=== PATIENT | male | born 1960 | race Caucasian/White ===

== ENCOUNTER 2017-10-12 07:47 | Emergency (ER) | payer OTHER ==
[2017-10-12] MEDS ORDERED: IBUPROFEN 800 MG TABLET PO ONE (08:14)
[2017-10-12] MEDS ORDERED: ONDANSETRON 4 MG TAB.RAPDIS PO ONE (08:14)
--- NOTE | 2017-10-12 09:37 | ER Document Report ---
ED Flu Like - General Chief Complaint: Flu Symptoms Stated Complaint: FEVER Time Seen by Provider: 10/12/17 08:13 Mode of Arrival: Ambulatory Information source: Patient Notes: Patient is a 57-year-old male who presents to the ER today for 1 day of body aches, nausea, diarrhea, without vomiting. Patient denies fever or chills. He denies any cough, runny nose, sore throat or other upper respiratory symptoms. TRAVEL OUTSIDE OF THE [place] IN LAST 30 DAYS: No - Related Data Allergies/Adverse Reactions: No Known Allergies Allergy (Verified 10/12/17 07:48) Past Medical History - General Information source: Patient - Social History Smoking Status: Never Smoker Chew tobacco use (# tins/day): No Drug Abuse: None Family History: Reviewed & Not Pertinent Patient has suicidal ideation: No Patient has homicidal ideation: No Renal/ Medical History: Denies: Hx Peritoneal Dialysis Review of Systems - Review of Systems Constitutional: See HPI, Malaise EENT: No symptoms reported Cardiovascular: No symptoms reported Respiratory: No symptoms reported Gastrointestinal: See HPI Genitourinary: No symptoms reported Male Genitourinary: No symptoms reported Musculoskeletal: No symptoms reported Skin: No symptoms reported Hematologic/Lymphatic: No symptoms reported Neurological/Psychological: No symptoms reported Physical Exam - Vital signs Vitals: Pulse Resp BP Pulse Ox 106 H 16 115/74 97 10/12/17 07:53 10/12/17 07:53 10/12/17 07:53 10/12/17 07:53 - Notes Notes: PHYSICAL EXAMINATION: GENERAL: Mildly ill-appearing, but in no acute distress. HEAD: Atraumatic, normocephalic. EYES: Pupils equal round and reactive to light, extraocular movements intact, sclera anicteric, conjunctiva are normal. ENT: ear canals without erythema or foreign body, TMs pearly clemente with good bony landmarks, nares patent, oropharynx clear without exudates. Moist mucous membranes. NECK: Normal range of motion, supple without lymphadenopathy LUNGS: CTAB and equal. No wheezes rales or rhonchi. HEART: Regular rate and rhythm without murmurs ABDOMEN: Soft, no tenderness. No guarding, no rebound BACK: no vertebral tenderness, normal ROM GI/: no CVA tenderness EXTREMITIES: Normal range of motion, no pitting edema. No cyanosis. NEUROLOGICAL: Cranial nerves grossly intact. Normal sensory/motor exams. PSYCH: Normal mood, normal affect. SKIN: Warm, Dry, normal turgor, no rashes or lesions noted Course - Re-evaluation Re-evalutation: 10/12/17 17:24 influenza negative here today. Patient given nausea medication and ibuprofen, advised to drink plenty of fluids. - Vital Signs Vital signs: Temp Pulse Resp BP Pulse Ox 97.7 F 75 18 112/68 97 10/12/17 09:55 10/12/17 09:55 10/12/17 09:55 10/12/17 09:55 10/12/17 09:55 Discharge - Discharge Clinical Impression: Viral syndrome Diarrhea Qualifiers: Diarrhea type: unspecified type Qualified Code(s): R19.7 - Diarrhea, unspecified Condition: Stable Disposition: HOME, SELF-CARE Instructions: Diarrhea, Nonspecific ([facility]), Viral Syndrome ([facility]) Additional Instructions: Please drink plenty of fluids, Gatorade, water. Return immediately for any new or worsening symptoms. Follow up with primary care provider, call tomorrow to make followup appointment. Prescriptions: Ibuprofen [Motrin 800 mg Tablet] 800 mg PO Q8H PRN #30 tab PRN Reason: Ondansetron [Zofran Odt 4 mg Tablet] 1 - 2 tab PO Q4H PRN #15 tab.rapdis PRN Reason: For Nausea/Vomiting Forms: Return to Work
[2017-10-12 09:58] VITALS: BP 112/68
== END 2017-10-12 09:54 | disposition home or self-care (01) ==
LOC: ER 07:47
DX: B34.9 Viral infection, unspecified (principal); R19.7 Diarrhea, unspecified; R11.0 Nausea; R52 Pain, unspecified; R53.81 Other malaise
CPT/HCPCS: 99283; 87804; S0119

== ENCOUNTER 2017-12-26 15:37 | Emergency (ER) | payer OTHER ==
[2017-12-26] MEDS ORDERED: IPRATROPIUM/ALBUTEROL 0.5-2.5 MG/3 ML AMPUL NEB ONE ×3 (16:09→16:14)
[2017-12-26] MEDS ORDERED: PREDNISONE 20 MG TABLET PO ONE (16:14)
--- NOTE | 2017-12-26 16:17 | ER Document Report ---
ED General - General Chief Complaint: Cough, congestion, asthma Stated Complaint: COUGH, DIFFICULTY BREATHING, BODY ACHES Time Seen by Provider: 12/26/17 16:03 Mode of Arrival: Ambulatory Information source: Patient Notes: 57-year-old male history of asthma presents with complaints of cough 3-4 day duration with wheezing. Patient has been using nebulizer at home. He denies any fevers or chills denies any nausea vomiting or diarrhea. She notes that family member was recently diagnosed with bronchitis TRAVEL OUTSIDE OF THE [place] IN LAST 30 DAYS: No - HPI Onset: Other Onset/Duration: Persistent Quality of pain: Achy Severity: Mild Pain Level: 1 Associated symptoms: Productive cough, Shortness of breath Exacerbated by: Movement, Walking, Coughing Relieved by: Denies Similar symptoms previously: Yes Recently seen / treated by doctor: No - Related Data Allergies/Adverse Reactions: No Known Allergies Allergy (Verified 10/12/17 07:48) Past Medical History - Social History Smoking Status: Former Smoker Cigarette use (# per day): No Chew tobacco use (# tins/day): No Smoking Education Provided: No Frequency of alcohol use: None Drug Abuse: None Family History: Reviewed & Not Pertinent Patient has suicidal ideation: No Patient has homicidal ideation: No - Past Medical History Cardiac Medical History: Reports: Hx Hypertension Pulmonary Medical History: Reports: Hx Asthma Renal/ Medical History: Denies: Hx Peritoneal Dialysis Past Surgical History: Reports: Hx Oral Surgery - [place] Review of Systems - Review of Systems Notes: REVIEW OF SYSTEMS: CONSTITUTIONAL : Denies fever, chills, or sweats. Denies recent illness. EENT: Denies eye, ear, throat, or mouth pain or symptoms. Denies nasal or sinus congestion or discharge. Denies throat, tongue, or mouth swelling or difficulty swallowing. CARDIOVASCULAR: Denies chest pain. Denies palpitations or racing or irregular heart beat. Denies ankle edema. RESPIRATORY: Admits to cough shortness of breath GASTROINTESTINAL: Denies abdominal pain or distention. Denies nausea, vomiting , or diarrhea. Denies blood in vomitus, stools, or per rectum. Denies black, tarry stools. Denies constipation. GENITOURINARY: Denies difficulty urinating, painful urination, burning, frequency, blood in urine, or discharge. MUSCULOSKELETAL: Denies back or neck pain or stiffness. Denies joint pain or swelling. SKIN: Denies rash, lesions or sores. HEMATOLOGIC : Denies easy bruising or bleeding. LYMPHATIC: Denies swollen, enlarged glands. NEUROLOGICAL: Denies confusion or altered mental status. Denies passing out or loss of consciousness. Denies dizziness or lightheadedness. Denies headache. Denies weakness or paralysis or loss of use of either side. Denies problems with gait or speech. Denies sensory loss, numbness, or tingling. Denies seizures. PSYCHIATRIC: Denies anxiety or stress. Denies depression, suicidal ideation, or homicidal ideation. ALL OTHER SYSTEMS REVIEWED AND NEGATIVE. Dictation was performed using [employer] voice recognition software PHYSICAL EXAMINATION: GENERAL: Well-appearing, well-nourished and in no acute distress. HEAD: Atraumatic, normocephalic. EYES: Pupils equal round and reactive to light, extraocular movements intact, sclera anicteric, conjunctiva are normal. ENT: Nares patent, oropharynx clear without exudates. Moist mucous membranes. NECK: Normal range of motion, supple without lymphadenopathy LUNGS: Coarse wheezing shortness of breath HEART: Regular rate and rhythm without murmurs ABDOMEN: Soft, nontender, nondistended abdomen. No guarding, no rebound. No masses appreciated. Musculoskeletal: Normal range of motion, no pitting or edema. No cyanosis. NEUROLOGICAL: Cranial nerves grossly intact. Normal speech, normal gait. Normal sensory, motor exams PSYCH: Normal mood, normal affect. SKIN: Warm, Dry, normal turgor, no rashes or lesions noted. Physical Exam - Vital signs Vitals: Temp Pulse Resp BP Pulse Ox 98.6 F 83 20 140/84 H 95 12/26/17 15:56 12/26/17 15:56 12/26/17 15:56 12/26/17 15:56 12/26/17 15:56 Course - Re-evaluation Re-evalutation: 12/26/17 16:17 Patient will be given breathing treatments x-rays pending overall he looks well satting 95% upon arrival will keep an eye on him and reevaluate continuously 12/26/17 20:23 After breathing treatments patient looks extremely well is in no distress. Patient is very happy with his care wishes to be discharged home x-ray noted no acute abnormal findings After performing a Medical Screening Examination, I estimate there is LOW risk for ACUTE CORONARY SYNDROME, PULMONARY EMBOLI, RESPIRATORY FAILURE, SEPSIS OR MENINGITIS, thus I consider the discharge disposition reasonable. I have reevaluated this patient multiple times and no significant life threatening changes are noted. The patient and I have discussed the diagnosis and risks, and we agree with discharging home with close follow-up. We also discussed returning to the Emergency Department immediately if new or worsening symptoms occur. We have discussed the symptoms which are most concerning (e.g., changing or worsening pain, trouble swallowing or breathing, neck stiffness, fever) that necessitate immediate return. - Vital Signs Vital signs: Temp Pulse Resp BP Pulse Ox 99.2 F 99 20 153/80 H 97 12/26/17 18:04 12/26/17 18:04 12/26/17 18:04 12/26/17 18:04 12/26/17 18:04 - Diagnostic Test Radiology reviewed: Image reviewed, Reports reviewed Discharge - Discharge Clinical Impression: Asthma exacerbation Qualifiers: Asthma severity: mild Asthma persistence: intermittent Qualified Code(s): J45.21 - Mild intermittent asthma with (acute) exacerbation HTN (hypertension) Qualifiers: Hypertension type: essential hypertension Qualified Code(s): I10 - Essential ( primary) hypertension Condition: Stable Disposition: HOME, SELF-CARE Instructions: Asthma ([facility]) Additional Instructions: Follow up with your physician tomorrow for further care or return to the ED IMMEDIATELY if symptoms worsen or new concerns occur. If you cannot afford to follow up with your primary care physician a list of low cost clinics have been provided at the end of your discharge papers as well. Prescriptions: Hydrocodone Bit/Homatropine [Hycodan 5-1.5 mg Tablet] 1 tab PO Q4HP PRN #24 tablet PRN Reason: Prednisone [Deltasone 20 mg Tablet] 3 tab PO DAILY 5 Days tablet Referrals: LUIS ALBERTO MILES MD [Primary Care Provider] - Follow up as needed
--- NOTE | 2017-12-26 17:31 | RADIOLOGY REPORT (SQ) ---
EXAM DESCRIPTION: CHEST PA/LAT COMPLETED DATE/TIME: 12/26/2017 5:17 pm REASON FOR STUDY: cough sob COMPARISON: Popped April 2011 NUMBER OF VIEWS: Two view. TECHNIQUE: Frontal and lateral radiographic views of the chest acquired. LIMITATIONS: None. FINDINGS: LUNGS AND PLEURA: Minimal bibasilar density. Differential includes atelectasis or infilt rate or chronic change that has developed since the previous chest x-ray of 2010. MEDIASTINUM AND HILAR STRUCTURES: No masses or contour abnormalities. HEART AND VASCULATURE: Heart normal size. No evidence for failure. BONY STRUCTURES: No acute findings. HARDWARE: None. OTHER: No other significant finding. IMPRESSION: Minimal bibasilar density. See above discussion. TECHNICAL DOCUMENTATION: JOB ID: [id number] [employer]- All Rights Reserved Reading location - IP/workstation name: [email or web address]
[2017-12-26 18:06] VITALS: BP 153/80
== END 2017-12-26 18:06 | disposition home or self-care (01) ==
LOC: ER 15:37
DX: J45.21 Mild intermittent asthma with (acute) exacerbation (principal); I10 Essential (primary) hypertension; R05 Cough; R09.81 Nasal congestion; R06.02 Shortness of breath; M79.1 Myalgia; Z87.891 Personal history of nicotine dependence
CPT/HCPCS: 99283; 71046; J7512; J7620

== ENCOUNTER 2019-10-31 11:36 | Emergency (ER) | payer OTHER ==
[2019-10-31 11:54] VITALS: BP 157/85
[2019-10-31] MEDS ORDERED: KETOROLAC TROMETHAMINE 60 MG/2 ML SDV IM ONE (12:28)
--- NOTE | 2019-10-31 12:32 | ER Document Report ---
HPI - HPI Time Seen by Provider: 10/31/19 12:23 Notes: Patient is a 59-year-old male who presents complaining of right proximal medial scapular pain that radiates up towards his neck after he was working underneath a sink yesterday. Patient states he woke up with soreness to the area. Patient states that nothing is broken and there was no injury otherwise. Denies drug allergies. No recent illness. He is able to eat and drink without difficulty. He is urinating normally. Denies any headache, fever, changes in vision/speech/mentation/hearing, URI, sore throat, chest pain, palpitations, syncope, cough, shortness of breath, wheeze, dyspnea, abdominal pain, nausea/vomiting/diarrhea, urinary retention, dysuria, hematuria, loss of control of bowel or bladder, numbness/tingling, saddle anesthesia, muscle paralysis/weakness, or rash. - ROS Systems Reviewed and Negative: Yes All other systems reviewed and negative Past Medical History - Social History Smoking Status: Unknown if Ever Smoked Family History: Reviewed & Not Pertinent - Past Medical History Cardiac Medical History: Reports: Hx Hypertension Pulmonary Medical History: Reports: Hx Asthma Renal/ Medical History: Denies: Hx Peritoneal Dialysis Past Surgical History: Reports: Hx Oral Surgery - [place] [facility] Provider Document - CONSTITUTIONAL Agree With Documented VS: Yes Notes: PHYSICAL EXAMINATION: GENERAL: Well-appearing, well-nourished and in no acute distress. NECK: Normal range of motion, supple without lymphadenopathy. Non-tender. Spurling negative. No rigidity/meningismus. LUNGS: Breath sounds clear to auscultation bilaterally and equal. No wheezes rales or rhonchi. HEART: Regular rate and rhythm without murmurs, rubs, gallops. Musculoskeletal: Rt shoulder: FROM to passive/active. Strength 5+/5. Neg impingement test. Neg speed test. No crepitus. No erythema or warmth. No deformity or ecchymosis. RC intact 5+/5 strength. Back: FROM. + muscle spasm/trigger point noted to the levator scapulae muscle rt side that reproduces symptoms. No vertebral tenderness. Extremities: No cyanosis, clubbing, or edema b/l. Peripheral pulses 2+. Capillary refill less than 3 seconds. NEUROLOGICAL: Normal speech, normal gait. Normal sensory, motor exams PSYCH: Normal mood, normal affect. SKIN: Warm, Dry, normal turgor, no rashes or lesions noted. - INFECTION CONTROL TRAVEL OUTSIDE OF THE [place] IN LAST 30 DAYS: No Course - Re-evaluation Re-evalutation: 10/31/19 12:30 Patient is an afebrile, well-hydrated, 59-year-old male who presents to the ED with Rt scapular pain suspect musculoskeletal. Vitals are acceptable. PE is otherwise unremarkable for any focal neurological deficits. Patient was given Toradol. He has no significant tachycardia, tachypnea, or hypoxia. He is nontoxic-appearing and is tolerating p.o. without difficulties. There are no signs of infection. No other red flag symptoms noted. No other labs or imaging warranted at this time based on H&P. Low suspicion for any meningitis, fracture, expanding/ruptured AAA, cauda equina syndrome, epidural mass lesion/abscess, herniated disc causing severe spinal stenosis, fracture, dislocation, septic joint, or other systemic infection at this time. Patient is aware that his condition can change from initial presentation and that he needs monitor symptoms closely for any acute changes. Conservative measures otherwise for symptoms. Recheck with your PCM in 3-5 days. Consider consult with orthopedic/physical therapy. Return to the ED with any worsening/concerning symptoms otherwise as reviewed discharge. Patient is in agreement. - Vital Signs Vital signs: Temp Pulse Resp BP Pulse Ox 98.0 F 70 16 157/85 H 96 10/31/19 11:53 10/31/19 11:53 10/31/19 11:53 10/31/19 11:53 10/31/19 11:53 Discharge - Discharge Clinical Impression: Pain of right scapula, Trigger point Condition: Stable Disposition: HOME, SELF-CARE Additional Instructions: Rest, Ice, Compression Tylenol/ibuprofen as needed Light stretches daily Strength exercises as able Moist heat and massage may help F/u with your PCP in 3-5 days for a recheck Consider consult(s) with Orthopedics/physical therapy for ongoing/worsening symptoms Return to the ED with any worsening symptoms and/or development of fever, headache, chest pain, palpitations, syncope, shortness of breath, trouble breathing, abdominal pain, n/v/d, muscle weakness/paralysis, numbness/tingling, swelling, redness, or other worsening symptoms that are concerning to you. Forms: Elevated Blood Pressure, Return to Work Referrals: LUIS ALBERTO MILES MD [Primary Care Provider] - Follow up as needed [facility] [Provider Group] - Follow up as needed
== END 2019-10-31 12:36 | disposition home or self-care (01) ==
LOC: ER 11:36
DX: M89.8X1 Other specified disorders of bone, shoulder (principal); M62.838 Other muscle spasm; I10 Essential (primary) hypertension; J45.909 Unspecified asthma, uncomplicated
CPT/HCPCS: 99283; 96372; J1885